=== PATIENT | male | born 1995 | race Caucasian/White ===

== ENCOUNTER 2019-08-09 02:14 | Emergency (ER) | payer MEDICAID ==
[~2019-08-09] VITALS: Ht 127 cm; Wt 53.1 kg
[2019-08-09 02:18] VITALS: Ht 127 cm; Wt 53.1 kg
[2019-08-09 04:04] VITALS: BP 125/79
== END 2019-08-09 04:04 | disposition home or self-care (01) ==
LOC: ED 02:14
DX: T40.691A Poisoning by other narcotics, accidental (unintentional), initial encounter (principal); Y92.89 Other specified places as the place of occurrence of the external cause